=== PATIENT | female | born 1985 | race Caucasian/White ===

== ENCOUNTER 2020-10-05 08:15 | Emergency (ER) | payer OTHER ==
[~2020-10-05] VITALS: Ht 167.6 cm; Wt 60.0 kg
[2020-10-05] MEDS ORDERED: ACETAMINOPHEN 325MG TABLET PO ONE (08:30)
[2020-10-05] MEDS ORDERED: KETOROLAC 60MG/2ML VIAL IM ONE (08:30)
[2020-10-05] MEDS ORDERED: DEXAMETHASONE 10 MG/ML VIAL IV ONE (08:30)
[2020-10-05] MEDS ORDERED: MORPHINE SULFATE 4 MG/ML CPJ (NOT FOR IM USE) IV ONE (08:45)
[2020-10-05] MEDS ORDERED: LIDOCAINE 5% PATCH TOP SCH (09:00)
[2020-10-05 09:09] LABS: BASOPHILS % 0.1 % (0.0-2.0); EOSINOPHILS % 0.6 % (0.0-5.0); HEMATOCRIT. 42.3 % (36.0-48.0); HEMOGLOBIN. 14.4 g/dL (12.0-16.0); LYMPHOCYTES % 18.6 % (20.0-50.0); MEAN CORPUSCULAR HEMOGLOBIN 31.3 pg (28.0-32.0); MEAN PLATELET VOLUME 8.9 fl (7.4-10.4); MONOCYTES % 4.2 % (2.0-8.0); NEUTROPHILS % 76.5 % (40.0-76.0); PLATELET 196 x1000/uL (130-400); RED BLOOD CELL COUNT 4.59 mill/uL (4.2-5.4); RED CELL DISTRIBUTION WIDTH 13.5 % (11.6-14.6)
[2020-10-05 09:12] LABS: CHLORIDE 111 mEq/L (98-107)
[2020-10-05 09:18] LABS: *AMPHETAMINES SCREEN URINE NEGATIVE (NEGATIVE); *BARBITURATES SCREEN URINE NEGATIVE (NEGATIVE); *BENZODIAZEPINES SCREEN URINE NEGATIVE (NEGATIVE); *COCAINE SCREEN URINE NEGATIVE (NEGATIVE); METHADONE URINE SCREEN NEGATIVE (NEGATIVE)
[2020-10-05 09:19] LABS: OPIATES URINE SCREEN NEGATIVE (NEGATIVE); PHENCYCLIDINE URINE SCREEN NEGATIVE (NEGATIVE)
[2020-10-05 09:24] LABS: CANNABINOID URINE SCREEN PRESUMTIVE POSITIVE (NEGATIVE)
[2020-10-05] MEDS ORDERED: IBUP-2029 MT (12:26)
[2020-10-05] MEDS ORDERED: LIDO700A15 TP (12:26)
[2020-10-05] MEDS ORDERED: TOPUD PO (12:26)
[2020-10-05] MEDS ORDERED: GABA-529 MT (12:26)
[2020-10-05 13:36] VITALS: BP 107/64
== END 2020-10-05 13:58 | disposition home or self-care (01) ==
LOC: ER 08:15
DX: M54.42 Lumbago with sciatica, left side (principal); F12.10 Cannabis abuse, uncomplicated
CPT/HCPCS: 36415; 72148; 80048; 80305; 81025; 85025; 96372; 96374; 96375; 99284; J1100; J1885; J2270

== ENCOUNTER 2021-01-03 05:14 | Emergency (ER) | payer OTHER ==
[~2021-01-03] VITALS: Ht 154.9 cm; Wt 53.0 kg
[~2021-01-03 05:14] MED LIST: GABA-529 MT; IBUP-2029 MT; LIDO700A15 TP; TOPUD PO
[2021-01-03] MEDS ORDERED: OXYC-100 PO (06:13)
[2021-01-03] MEDS ORDERED: OXYCODONE HCL/ACETAMINOPHEN 5/325MG TABLET PO ONE (06:15)
[2021-01-03 06:31] VITALS: BP 140/91
== END 2021-01-03 07:00 | disposition home or self-care (01) ==
LOC: ER 05:14
DX: M79.18 Myalgia, other site (principal)
CPT/HCPCS: 99283